=== PATIENT | female | born 1995 | race Caucasian/White ===

== ENCOUNTER 2017-01-23 17:36 | Emergency (ER) | payer MEDICAID ==
[~2017-01-23] VITALS: Ht 167.6 cm; Wt 54.4 kg
[~2017-01-23 17:36] MED LIST: BACTRIM DS 8001 TA1 PO; BACTROBAN CREAM15 GM T; BUSPIRONE10 MG PO; CATAFLAM50 MG PO; CELEXA10 MG PO; CLEOCIN150 MG PO; HYDROCODONE BIT1 T11 PO; MOTRIN600 MG PO; NORCO 325 MG-51 TAB PO; PRENATAL1 TA3 PO; TRAMADOL HCL50 MG PO; TYLENOL W/CODEI1 TA4 PO; VIBRAMYCIN100 MG PO; VICODIN 5/500 505 MG PO
[2017-01-23] MEDS ORDERED: COLACE100 MG PO (18:18)
[2017-01-23] MEDS ORDERED: NAPROSYN500 MG PO (18:18)
[2017-01-23] MEDS ORDERED: PROCTOFOAM-HC 11 FOA RC (18:18)
== END 2017-01-23 18:25 | disposition home or self-care (01) ==
LOC: ED 17:36
DX: K64.4 Residual hemorrhoidal skin tags (principal); R03.0 Elevated blood-pressure reading, without diagnosis of hypertension; Z88.0 Allergy status to penicillin